=== PATIENT | male | born 1935 | race Caucasian/White ===

== ENCOUNTER 2019-01-27 09:45 | Emergency (ER) | payer MEDICARE, BC ==
[2019-01-27 10:29] LABS: URINE APPEARANCE CLEAR; URINE BILIRUBIN NEGATIVE (NEGATIVE); URINE BLOOD NEGATIVE (NEGATIVE); URINE COLOR YELLOW; URINE GLUCOSE (UA) NEGATIVE (NEGATIVE); URINE KETONE NEGATIVE (NEGATIVE); URINE LEUKOCYTE ESTERASE NEGATIVE (NEGATIVE); URINE NITRITE NEGATIVE (NEGATIVE); URINE PROTEIN NEGATIVE (NEGATIVE); URINE UROBILINOGEN 0.2 E.U./dL (0.20 - 1.00)
[2019-01-27 10:47] LABS: BASO % 0.2 % (0-6); EOS % 1.1 % (0-6); GRAN % 79.3 % (47-80); HEMATOCRIT 42.7 % (42.0-52.0); HEMOGLOBIN 14.3 gm/dl (14.0-18.0); LYMPH % 12.2 % (16-45); MEAN CELL VOLUME 86.3 fl (81-97); MEAN CORPUSCULAR HEMOGLOBIN 28.9 pg (27-33); MEAN CORPUSCULAR HGB CONC 33.5 g/dl (32-36); MONO % 7.2 % (0-9); PLATELET COUNT 234 K/uL (130-400); RED BLOOD COUNT 4.95 M/uL (4.40-5.70); RED CELL DISTRIBUTION WIDTH 13.6 % (11.5-14.5); WHITE BLOOD COUNT W/O DIFF 13.7 K/uL (4.2-12.2)
[2019-01-27 10:55] LABS: CREATININE 1.4 mg/dL (0.7-1.2)
[2019-01-27] MEDS ORDERED: LIDOCAINE UROJECT 10 ML APPL MM ONE (13:57)
[2019-01-27] MEDS ORDERED: OXYBUTYNIN CHLORIDE 5MG TABLET PO ONE (13:59)
--- NOTE | 2019-01-27 14:10 | Emergency Department Record ---
History of Present Illness - General Chief complaint: Male Urogenital Problem Stated complaint: TROUBLE URINATING & WITH BOWEL MOVEMENTS Time Seen by Provider: 01/27/19 10:13 Source: Patient Mode of Arrival: Ambulatory Limitations: No limitations - History of Present Illness Initial comments: pt is having dysurea, ap,constipation, only able to urinate small amts. his last bm was 3 days ago. pt is poor historian Onset/Timin -: Week(s) Location: Penis Severity: Moderate Severity scale (1-10): 4 Quality: Aching, Burning Consistency: Constant Reports: Denies other symptoms - Related Data Home Medications Medication Instructions Recorded Confirmed Last Taken Finasteride [Proscar] 5 mg PO DAILY 01/27/19 01/27/19 1 Day Ago ~01/26/19 Hydrochlorothiazide [Hctz 12.5MG] 12.5 mg PO DAILY 01/27/19 01/27/19 1 Day Ago ~01/26/19 Lisinopril 40 mg PO BID 01/27/19 01/27/19 1 Day Ago ~01/26/19 Previous Rx's Medication Instructions Recorded Docusate Sodium [Colace] 100 mg PO BID #20 cap 01/27/19 Oxybutynin Chloride [Ditropan] 5 mg PO BID #14 tab 01/27/19 Allergies Allergy/AdvReac Type Severity Reaction Status Date / Time No Known Drug Allergies Allergy Verified 01/27/19 10:04 Travel Screening - Travel/Exposure Within Last 30 Days Have you traveled within the last 30 days?: No - Travel/Exposure Within Last Year Have you traveled outside the [place] in the last year?: No - Additonal Travel Details Have you been exposed to anyone with a communicable illness?: No - Travel Symptoms Symptom Screening: None Review of Systems Reviewed: No additional complaints except as noted below Constitutional: Reports: As per HPI. Denies: Chills, Fever, Malaise, Night sweats, Weakness, Weight change Eyes: Reports: As per HPI. Denies: Eye discharge, Eye pain, Photophobia, Vision change ENT: Reports: As per HPI. Denies: Congestion, Dental pain, Ear pain, Epistaxis , Hearing loss, Throat pain Respiratory: Reports: As per HPI. Denies: Cough, Dyspnea, Hemoptysis, Stridor, Wheezes Cardiovascular: Reports: As per HPI. Denies: Arrhythmia, Chest pain, Dyspnea on exertion, Edema, Murmurs, Orthopnea, Palpitations, Paroxysmal nocturnal dyspnea, Rheumatic Fever, Syncope Endocrine: Reports: As per HPI. Denies: Fatigue, Heat or cold intolerance, Polydipsia, Polyuria Gastrointestinal: Reports: As per HPI. Denies: Abdominal pain, Constipation, Diarrhea, Hematemesis, Hematochezia, Melena, Nausea, Vomiting Genitourinary: Reports: As per HPI, Dysuria, Frequency, Urgency. Denies: Hematuria, Incontinence, Retention, Testicular pain, Testicular mass Musculoskeletal: Reports: As per HPI. Denies: Arthralgia, Back pain, Gout, Joint swelling, Myalgia, Neck pain Skin: Reports: As per HPI. Denies: Bruising, Change in color, Change in hair/ nails, Lesions, Pruritus, Rash Neurological: Reports: As per HPI. Denies: Abnormal gait, Confusion, Headache, Numbness, Paresthesias, Seizure, Tingling, Tremors, Vertigo, Weakness Psychiatric: Reports: As per HPI. Denies: Anxiety, Auditory hallucinations, Depression, Homicidal thoughts, Suicidal thoughts, Visual hallucinations Hematological/Lymphatic: Reports: As per HPI. Denies: Anemia, Blood Clots, Easy bleeding, Easy bruising, Swollen glands Past Medical History - SOCIAL HISTORY Smoking Status: Never smoker Alcohol Use: None Drug Use: None - RESPIRATORY Hx Respiratory Disorders: No - CARDIOVASCULAR Hx Cardio Disorders: Yes Hx Hypertension: Yes - NEURO Hx Neuro Disorders: Yes - GI Hx GI Disorders: Yes Hx Reflux: Yes - Hx Genitourinary Disorders: Yes Hx Prostate Problems: Yes (BPH) - ENDOCRINE Hx Endocrine Disorders: No - MUSCULOSKELETAL Hx Arthritis: Yes Comment:: left hip - PSYCH Hx Psych Problems: No - HEMATOLOGY/ONCOLOGY Hx Hematology/Oncology Disorders: No Family Medical History Any Significant Family History?: Yes Physical Exam - General General Appearance: Alert, Oriented x3, Cooperative, No acute distress - Head Head exam: Normal inspection - Eye Eye exam: Normal appearance, PERRL, EOMI Pupils: Normal accommodation - ENT ENT exam: Normal exam, Mucous membranes moist, Normal external ear exam, Normal orophraynx Ear exam: Normal external inspection. negative: External canal tenderness Nasal Exam: Normal inspection. negative: Discharge, Sinus tenderness Mouth exam: Normal external inspection, Tongue normal Teeth exam: Normal inspection. negative: Dental caries Throat exam: Normal inspection. negative: Tonsillar erythema, Tonsillar exudate - Neck Neck exam: Normal inspection, Full ROM. negative: Tenderness - Respiratory Respiratory exam: Normal lung sounds bilaterally. negative: Respiratory distress - Cardiovascular Cardiovascular Exam: Regular rate, Normal rhythm, Normal heart sounds - GI/Abdominal GI/Abdominal exam: Soft, Normal bowel sounds. negative: Tenderness - Rectal Rectal exam: Deferred - exam: Deferred - Extremities Extremities exam: Normal inspection, Full ROM, Normal capillary refill. negative: Tenderness - Back Back exam: Reports: Normal inspection, Full ROM. Denies: Muscle spasm, Rash noted, Tenderness - Neurological Neurological exam: Alert, Normal gait, Oriented X3, Reflexes normal - Psychiatric Psychiatric exam: Normal affect, Normal mood - Skin Skin exam: Dry, Intact, Normal color, Warm Course Vital Signs 01/27/19 01/27/19 09:50 12:21 Temperature 98.1 F Pulse Rate 79 Pulse Rate [ 77 Right] Respiratory 20 18 Rate Blood Pressure 182/93 Blood Pressure 129/85 [Right Arm] Pulse Ox 97 100 - Reevaluation(s) Reevaluation #1: 01/27/19 14:13 d/w dr [email or web address] Medical Decision Making - Lab Data Result diagrams: 01/27/19 10:38 01/27/19 10:38 Lab Results 01/27/19 01/27/19 01/27/19 Range/Units 10:06 10:38 10:38 WBC 13.7 H (4.2-12.2) K/uL RBC 4.95 (4.40-5.70) M/uL Hgb 14.3 (14.0-18.0) gm/dl Hct 42.7 (42.0-52.0) % MCV 86.3 (81-97) fl MCH 28.9 (27-33) pg MCHC 33.5 (32-36) g/dl RDW 13.6 (11.5-14.5) % Plt Count 234 (130-400) K/uL MPV 9.0 (7.4-10.4) fl Gran % 79.3 (47-80) % Lymphocytes % 12.2 L (16-45) % Monocytes % 7.2 (0-9) % Eosinophils % 1.1 (0-6) % Basophils % 0.2 (0-6) % Sodium 133 L (136-145) mmol/L Potassium 4.1 (3.4-4.5) mmol/L Chloride 96 L (98-107) mmol/L Carbon Dioxide 25.0 (22-29) mmol/L Anion Gap 12.0 (7-16) BUN 27 H (8-23) mg/dL Creatinine 1.4 H (0.7-1.2) mg/dL Estimated GFR 51 mL/min Random Glucose 117 H (74-109) mg/dL Calcium 9.8 (8.8-10.2) mg/dL PSA Screen (0.0-4.4) ng/mL Urine Color Yellow Urine Appearance Clear Urine pH 6.0 (5.0-8.0) Ur Specific [place] 1.010 (1.002-1.030) Urine Protein Negative (NEGATIVE) Urine Glucose (UA) Negative (NEGATIVE) Urine Ketones Negative (NEGATIVE) Urine Blood Negative (NEGATIVE) Urine Nitrite Negative (NEGATIVE) Urine Bilirubin Negative (NEGATIVE) Urine Urobilinogen 0.2 (0.20 - 1.00) E.U./dL Ur Leukocyte Esterase Negative (NEGATIVE) 01/27/19 Range/Units 11:51 WBC (4.2-12.2) K/uL RBC (4.40-5.70) M/uL Hgb (14.0-18.0) gm/dl Hct (42.0-52.0) % MCV (81-97) fl MCH (27-33) pg MCHC (32-36) g/dl RDW (11.5-14.5) % Plt Count (130-400) K/uL MPV (7.4-10.4) fl Gran % (47-80) % Lymphocytes % (16-45) % Monocytes % (0-9) % Eosinophils % (0-6) % Basophils % (0-6) % Sodium (136-145) mmol/L Potassium (3.4-4.5) mmol/L Chloride (98-107) mmol/L Carbon Dioxide (22-29) mmol/L Anion Gap (7-16) BUN (8-23) mg/dL Creatinine (0.7-1.2) mg/dL Estimated GFR mL/min Random Glucose (74-109) mg/dL Calcium (8.8-10.2) mg/dL PSA Screen 11.32 H (0.0-4.4) ng/mL Urine Color Urine Appearance Urine pH (5.0-8.0) Ur Specific [place] (1.002-1.030) Urine Protein (NEGATIVE) Urine Glucose (UA) (NEGATIVE) Urine Ketones (NEGATIVE) Urine Blood (NEGATIVE) Urine Nitrite (NEGATIVE) Urine Bilirubin (NEGATIVE) Urine Urobilinogen (0.20 - 1.00) E.U./dL Ur Leukocyte Esterase (NEGATIVE) Disposition Disposition: Discharge Clinical Impression: Bladder mass Enlarged prostate with lower urinary tract symptoms (LUTS) Qualifiers: Lower urinary tract symptom detail: urinary frequency Qualified Code(s): N40.1 - Benign prostatic hyperplasia with lower urinary tract symptoms; R35.0 - Frequency of micturition Disposition: Home, Self-Care Condition: (1) Good Instructions: Benign Prostatic Hypertrophy (ED), Soft Tissue Mass (ED) Additional Instructions: follow up without fail on tuesday or tuesday with urologist for further evaluation of mass. return sooner if worse Prescriptions: Docusate Sodium [Colace] 100 mg PO BID #20 cap Oxybutynin Chloride [Ditropan] 5 mg PO BID #14 tab Referrals: SUNI WILDER [] - MANA CHO M.D. [MEDICAL DOCTOR] - [facility] [Provider Group] Quality - Quality Measures Quality Measures: N/A - Blood Pressure Screening Does Patient Have Any of the Following: Active Dx of HTN Blood Pressure Classification: Hypertensive Reading Systolic Measurement: 182 Diastolic Measurement: 93 Screening for High Blood Pressure: Patient Exclusion, Hx of HTN [[id number]]
--- NOTE | 2019-01-30 07:55 | CT SCAN REPORT ---
EXAM: NONCONTRAST CT OF THE ABDOMEN AND PELVIS HISTORY: URINARY RETENTION, LEFT HIP PAIN. TECHNIQUE: Noncontrast CT of the abdomen and pelvis was obtained. Comparison: None. FINDINGS: Scattered lung base atelectasis bilaterally. Small hiatal hernia. Cholelithiasis without appreciable inflammatory change. Diffuse hepatic steatosis. Unremarkable appearance of the adrenal glands, spleen and pancreas. No hydronephrosis. No intrarenal calculi. Simple attenuation right lower pole renal cyst. Enlarged lobulated prostate gland. A round soft tissue density structure is seen along the posterior inferior bladder wall adjacent to the prostate gland measuring approximately 3.6 x 2.9 x 4.0 cm. No focal colonic thickening or inflammatory change. There is a large amount of stool in the cecum and ascending colon. The stomach and small bowel are not dilated. Small fat containing left inguinal hernia. The abdominal aorta is calcified and tortuous without aneurysmal dilatation. Multilevel lumbar disk degeneration and facet joint arthrosis. Chronic appearing fracture deformity of the left inferior pubic ramus. IMPRESSION: 1. LARGE ROUNDED SOFT TISSUE DENSITY STRUCTURE ALONG THE POSTERIOR INFERIOR BLADDER WALL; DIFFERENTIAL INCLUDES FOCAL BLADDER WALL EFFACEMENT FROM ENLARGED NODULAR PROSTATE GLAND, BLADDER WALL INVASION FROM PROSTATIC NEOPLASM, OR PRIMARY BLADDER WALL NEOPLASM. UROLOGIC CONSULTATION IS RECOMMENDED. 2. CHOLELITHIASIS. 3. HEPATIC STEATOSIS. 4. SMALL HIATAL HERNIA. SMALL FAT CONTAINING LEFT INGUINAL HERNIA. 5. MULTILEVEL LUMBAR SPINE DISK DEGENERATION. JOB NUMBER: [id number] [facility]
== END 2019-01-27 14:54 | disposition home or self-care (01) ==
LOC: ER 09:45
DX: N32.9 Bladder disorder, unspecified (principal); R35.0 Frequency of micturition; R30.0 Dysuria; R10.9 Unspecified abdominal pain; K59.00 Constipation, unspecified; I10 Essential (primary) hypertension
CPT/HCPCS: 51702; 99283; 99284; 85025; 80048; 81003; 74176; G0103; J3490